=== PATIENT | male | born 1975 | race Caucasian/White ===

== ENCOUNTER → 2021-02-13 15:18 | Outpatient (BNVA) | payer OTHER, SELFPAY | PROVIDERS: PCP Internal Medicine; Visit Provider Hospitalist ==

== ENCOUNTER → 2021-09-18 15:19 | Outpatient (BNVA) | payer OTHER, SELFPAY | PROVIDERS: PCP Internal Medicine; Visit Provider Hospitalist ==

== ENCOUNTER → 2021-10-05 16:02 | Outpatient (REF) | payer OTHER, SELFPAY | LOC: HO.SL 16:02 | PROVIDERS: PCP Internal Medicine; Visit Provider Hospitalist | DX: G47.33 Obstructive sleep apnea (adult) (pediatric) (principal) | CPT/HCPCS: 95806 ==

== ENCOUNTER → 2021-12-21 10:31 | Outpatient (BNVA) | payer BC, SELFPAY | PROVIDERS: PCP Internal Medicine; Visit Provider Hospitalist ==

== ENCOUNTER → 2023-01-14 14:22 | Outpatient (BNVA) | payer BC, SELFPAY | PROVIDERS: PCP Internal Medicine; Visit Provider Hospitalist | DX: Z13.89 Encounter for screening for other disorder (principal) ==

== ENCOUNTER → 2023-04-12 15:22 | Outpatient (BNVA) | payer BC, SELFPAY | PROVIDERS: PCP Internal Medicine; Visit Provider Hospitalist ==

== ENCOUNTER 2023-07-21 15:50 | Outpatient (AMB) | payer BC, SELFPAY ==
--- NOTE | 2023-07-21 15:57 | A.OFFVIS_ITS ---
Intake Vital Signs 07/21/23 15:59 Height 5 ft 9 in Weight 197 lb BMI 29.1 Pulse 89 Pulse Source Pulse Oximeter Pulse Oximetry (%) 95 Oxygen Delivery Method Room Air Intake Visit Reasons: asthma [employer] Required: No Allergies No Known Allergies Allergy (Verified 07/21/23 16:00) HPI HPI Comments History of Present Illness Details The patient is a 47-year-old gentleman with a known history of severe persistent asthma in addition to severe eczema. He had been on chronic prednis one for many years. He was ultimately placed on nebulized therapy with Brovana and budesonide and responded very well to that. Ultimately tried multiple biologic therapies including; Xolair, Nucala, Fosenra and now on Dupixent. The picks and has been very effective for him. His eczema completely cleared and his asthma has been significantly better. Since he has been on the biologic therapy has not been on prednisone. He did have 1 episode that it he ended up having a brief hospitalization and had stop the Dupixent for couple weeks and his symptoms gradually came back. Therefore he knows not to miss a dose. Otherwise the patient is without any other complaints. 07/2020 the patient is here for pulmonary follow-up visit. He has been complaining of worsening chest tightness and shortness of breath. Not is typical asthma without any significant wheezing. The only change in his medication is he was given a generic lebalbuterl instead of his Xopenex. He continues on Dupixent and appears to be very effective in helping his asthma in addition to his eczema. He has not noted any issues with that. Does note increased chest tightness. In the office his blood pressure is elevated in the 140s over 80s and also we did note EKG that was slightly abnormal. At this point because of his symptoms with him go for an x-ray in addition to blood work. The patient will also benefit from having a cardiology evaluation potentially stress test. 02/13/2021 the patient is here for pulmonary follow-up visit. He has been having the persistent dyspnea on exertion. Kssn-km-hkkokjrf severity. Does have the chest tightness she is doing more regular. Has been using his nebulized therapy as prescribed. He is also using Spiriva. He has significant air trapping on examination with very diminished breath sounds. At this point will be reasonable to try him on a long-acting muscarinic antagonist through his nebulizer to further optimize his respiratory therapy. He continues on the Dupixent for his severe asthma. This appears to be helpful and effective in minimizing his significant allergies and eczema. He has not require prednisone while being on Dupixent except for burst of prednisone. The patient has gained weight since the last on. He understands that the waking would only worsen his respiratory capacity. Therefore we need to work on weight management and also exercise regimen. We talked about his beer drinking. He has been doing it more often on a daily basis. Therefore he is going to cut down and hopefully quit altogether. 09/18/2021 the patient is here for a pulmonary follow-up visit. Overall the patient has been doing well. We have switched him over to Yupelri from the Spiriva but he did not tolerated as well. Therefore he went back on Spiriva. He continues on his nebulized therapy. The patient did require a short burst of prednisone but he is trying to stay away from. He continues to respond well to the Dupixent. She does take that every 2 weeks. the Dupixent is really helping his eczema significantly as well. There was for severely good option for him to continue. However, he continues to have significant air trapping and obstru ctive airway disease and seemed to not be able to tolerate any the escalation of his respiratory therapy. Therefore, he may be a good candidate for TSLP Asthma therapy. the patient has gained some weight since we last spoke. He does have an elevated Topton score, 09/20. The patient has been having increasing daytime drowsiness and also headaches. I do believe that a home sleep study will be really important in view of his increase cardiovascular risk factors. Using positive her pressure may also help his obstructive airway disease. Will have him return after undergoing home sleep study to review the results. 12/21/2021 the patient has a telehealth visit. he recovered from COVID- 19. He did received monoclonal antibodies. Now is back to work today. No fevers or chills more than 24 hours. His respiratory status is also improved. He did complete antibiotics and also prednisone taper. He continues with his nebulized therapy. Still complains of dyspnea on exertion. Mild in severity. Patient understands that this can take a little longer to recover completely from COVID. In the meantime we did talk about his previous sleep study demonstrating evidence of overnight nocturnal hypoxia. In view of his asthma COPD the patient may benefit from oxygen supplementation at nighttime. I will therefore repeat the overnight oximetry at this time to see if he still qualifies. He continues on the Dupixent injections. The therapies have been helpful. Will consider alternative biologics in the future. 01/14/2023 the patient is here for pulmonary follow-up visit. Overall he is doing okay. Continues have significant dyspnea on exertion. Does have been getting worse moderate severity. Therefore he has not been able to exercise any noticed that he is gaining weight. He has been on his nebulized therapy regimen for many years. Seems like is not working as well any more. Therefore will go ahead and switch his medications over to further maximize it. Will have him start Trelegy and he will hold off on the Brovana for now. He will continue the budesonide as well this time. He continues on Dupixent injections. Although he continues to be symptomatic. Will go ahead and request blood work but I do believe the patient probably do better on test are. Will go ahead and continue to see how he response to the medication changes on then consider changing his biologic. The patient does have significant nocturnal hypoxia documented on previous studies. Therefore go ahead and order an overnight oximetry to further address did need for oxygen. 04/12/2023 the patient is here for pulmonary follow-up visit. Patient's no better. He did not start the Trelegy. Still having significant chest tightness and wheezing. He is not on any prednisone. The patient has been partially helpful. He also has significant eczema hope some with that. Although she has been breaking a little bit more. The patient is no longer responding to the Dupixent after few years. Therefore will go ahead and switch him to a different biologic, tezspire. In addition to that I do believe that he needs additional bronchodilation and will provided with prescription for Trelegy. He will continue the Trelegy along with his nebulized therapies. 07/21/2023 the patient is here for pulmonary follow-up visit. Since we last spoke the patient continues to have significant snoring. He has actually gained weight. His Topton score is elevated 09/20. His is very concerned because he does have apneic episodes. She is constantly having to turn him because of the apneic episodes. Will go ahead and repeat the home sleep study at this time. I do believe the patient will benefit from CPAP therapy. We also talked about alternative therapies but will have to wait for the sleep apnea results. Patient also has been responding well to Tezspire. he has been on now for 2 months and seems to be doing well. However, notices that the exam was act ually getting worse unfortunately. Will continue to monitor the axilla. I do believe that medication is working for for least for the asthma standpoint and therefore will continue for now. He did use the Trelegy inhaler. He did not think the Trelegy was as effective as the Spiriva. Therefore will go ahead and stop the Trelegy and he can go back on Brovana and budesonide along with Spiriva. Will send the medications to the pharmacy. [facility] Medical History (Updated 12/21/21 @ 21:51 by Paras Browne MD) Asthma-COPD overlap syndrome Chronic allergic rhinitis COVID-19 Eczema PANKAJ (obstructive sleep apnea) Severe persistent asthma Social History (Updated 09/18/21 @ 15:25 by Reena Nair [facility]) Patient Tobacco Use Status: Never used Tobacco Review of Systems Const Reports daytime sleepiness, Denies fever(s), Reports snoring, Reports stops breathing during sleep and Reports weight gain ENT Denies change in voice, Denies lip swelling, Denies mouth pain, Reports nasal congestion, Reports nasal discharge and Denies tongue swelling Card Denies chest pain and Reports dyspnea on exertion Resp Reports cough, Reports dyspnea on exertion, Reports snoring and Reports wheezing GI Denies abdominal pain Musc Denies no additional complaints Skin/Breast Reports rash Neuro Denies Neuro-related abnormal movements Psych Denies no additional complaints Alberto/Lymph Denies easy bleeding and Denies lymphadenopathy Aller/Immun Denies lip swelling, Denies tongue swelling and Reports wheezing Physical Exam Vital Signs: Last Vital Signs Pulse 89 07/21/23 15:59 Pulse Ox 95 07/21/23 15:59 Oxygen Delivery Method Room Air 07/21/23 15:59 BMI result Body Mass Index 29.1 Const General: alert Neck Neck: Yes normal visual inspection, Yes full ROM and Yes no lymphadenopathy Chest Chest palpation & inspection: normal inspection of the chest Resp Auscultation: no rhonchi, no wheezes and diminished lung sounds Cardio Rate: regular rate Rhythm: regular rhythm Heart sounds: S1 normal heart sound present and S2 normal heart sound present GI Palpation (GI): Soft to palpation and nontender Auscultation: normal bowel sounds General: Yes no CVA tenderness Back/Spine/Pelvis Back: no CVA tenderness Skin General skin exam: rashes and/or lesions noted Assessment & Plan Assessment & Plan (1) Severe persistent asthma: Code(s): J45.50 - Severe persistent asthma, uncomplicated Qualifiers: Asthma complication type: uncomplicated Qualified Code(s): J45.50 - Severe persistent asthma, uncomplicated (2) Eczema: Code(s): L30.9 - Dermatitis, unspecified Qualifiers: Eczema type: flexural Qualified Code(s): L20.82 - Flexural eczema (3) Asthma-COPD overlap syndrome: Code(s): J44.9 - Chronic obstructive pulmonary disease, unspecified (4) Chronic allergic rhinitis: Code(s): J30.9 - Allergic rhinitis, unspecified (5) PANKAJ (obstructive sleep apnea): Code(s): G47.33 - Obstructive sleep apnea (adult) (pediatric) Plan continue Tezspire, monitor eczema restart Spiriva continue Brovana twice a day continue BUdesonide twice a day Home PSG Xopenex as needed continue singulair Weight management exercise regularly F/U 3-6 months Medications: Changed From Spiriva Respimat 2.5 mcg/actuation (tiotropium bromide) 2 puffs inhalation DAILY 12 grams 3RF NS To Spiriva Respimat 2.5 mcg/actuation (tiotropium bromide) 2 puffs inhalation DAILY 90 days 12 grams 3RF NS Discontinued revefenacin (Yupelri) Discontinued Reason: Doctor's Order 175 mcg (3 mL) inhalation DAILY 30 days 90 mL 11RF xgvyespaxyw-qrjtsndmv-qohjsxrk 200-62.5-25 mcg (Trelegy Ellipta) Discontinued Reason: None 1 inh inhalation DAILY 30 days 60 ea 12RF zqdclqiawvg-oouysnybm-fvqyzasp 200-62.5-25 mcg (Trelegy Ellipta) Discontinued Reason: None 1 inh inhalation DAILY 90 days 3 ea 3RF Coding Level of Care Code Est Pt Level 4 (63937) Diagnoses Severe persistent asthma J45.50 Asthma complication type: uncomplicated Eczema L20.82 Eczema type: flexural Asthma-COPD overlap syndrome J44.9 Chronic allergic rhinitis J30.9 PANKAJ (obstructive sleep apnea) G47.33 Time Spent (min) 20
[2023-07-21 15:59] VITALS: PULSE 89; O2SAT 95; BMI 29.1
== END 2023-07-21 16:23 | disposition home or self-care (01) ==
PROVIDERS: PCP Internal Medicine; Visit Provider Hospitalist
DX: L20.82 Flexural eczema (principal); J44.9 Chronic obstructive pulmonary disease, unspecified; J30.9 Allergic rhinitis, unspecified; G47.33 Obstructive sleep apnea (adult) (pediatric)
CPT/HCPCS: 99214

== ENCOUNTER → 2023-07-21 15:50 | Outpatient (BNVA) | payer BC, SELFPAY | PROVIDERS: PCP Internal Medicine; Visit Provider Hospitalist ==

== ENCOUNTER 2023-10-25 15:55 | Outpatient (REF) | payer BC, SELFPAY ==
[2023-10-25 16:42] LABS: MANUAL DIFF FLAG NO
[2023-10-25 17:04] LABS: VBG Base Excess 4.6 mmol/L; VBG HCO3 30 mmol/L (22-26); VBG pCO2 51 mmHg; VBG pH 7.38 (7.32-7.43); VBG pO2 49 mmHg
[2023-10-25 17:05] LABS: Venous Blood Gas Refer to POC result
[2023-10-25 17:34] LABS: Basophils Percent Auto 0.4 % (0-2); Eosinophils Absolute Auto 0.1 X10*3/uL (0.0-0.4); Eosinophils Percent Auto 1.8 % (0-4); Hematocrit 41.7 % (42.0-52.0); Hemoglobin 14.3 g/dl (14.0-18.0); Imm Gran Abs Auto 0.02 X10*3/uL (0.00-0.03); Imm Gran Pct Auto 0.4 % (0.0-0.4); Lymphocytes Absolute Auto 1.6 X10*3/uL (1.2-4.9); Lymphocytes Percent Auto 29.2 % (20-40); Mean Corpuscular HGB Conc 34.3 g/dl (31.0-36.0); Mean Corpuscular Volume 93.3 fL (80.0-98.0); Mean Platelet Volume 10.8 fL (9.4-12.4); Monocytes Absolute Auto 0.6 X10*3/uL (0.1-1.2); Monocytes Percent Auto 10.9 % (2-11); Neutrophils Absolute Auto 3.2 x10*3/uL (2.0-8.3); Neutrophils Percent Auto 57.3 % (45-73); Platelet Count 196 X10*3/uL (160-400); Red Blood Count 4.47 X10*6/uL (4.60-5.80); White Blood Count 5.6 X10*3/uL (4.8-10.8)
[2023-10-25 17:43] LABS: D Dimer High Sensitivity < 150 NG/ML
[2023-10-25 18:17] LABS: Anion Gap 14 (12-20); Blood Urea Nitrogen 11 mg/dL (9-16); Calcium 9.6 mg/dL (8.4-10.2); Carbon Dioxide 28 mmol/L (22-29); Chloride 104 mmol/L (96-108); Estimated Glomerular Filt Rate > 60; Glucose Random 95 mg/dL (60-115); Potassium 4.1 mmol/L (3.3-5.1); Sodium 142 mmol/L (135-145)
[2023-10-25 19:07] LABS: Erythrocyte Sedimentation Rate 18 MM/HR (0-15)
[2023-10-27 03:18] LABS: Immunoglobulin E 65 kU/L (<OR=114)
[2023-10-28 16:59] LABS: IgA 291 mg/dL (47-310); IgG 897 mg/dL (600-1640); IgM 68 mg/dL (50-300)
== END 2023-10-25 15:56 | disposition home or self-care (01) ==
LOC: HO.LAB 15:55
PROVIDERS: PCP Internal Medicine; Visit Provider Hospitalist
DX: J45.51 Severe persistent asthma with (acute) exacerbation (principal); J44.9 Chronic obstructive pulmonary disease, unspecified; J96.01 Acute respiratory failure with hypoxia; L20.82 Flexural eczema; J30.9 Allergic rhinitis, unspecified; G47.33 Obstructive sleep apnea (adult) (pediatric)
CPT/HCPCS: 36415; 80048; 82784; 82785; 82803; 85025; 85379; 85652; 94618

== ENCOUNTER 2023-10-25 15:55 | Outpatient (AMB) | payer BC, SELFPAY ==
--- NOTE | 2023-10-25 15:56 | MHC.OFFVIS ---
Intake Vital Signs 10/25/23 15:57 Height 5 ft 9 in Weight 198 lb 6.656 oz BMI 29.3 BP 110/82 Blood Pressure Location Lt brachial Position Sitting Respiration 14 Pulse 89 Pulse Source Pulse Oximeter Pulse Oximetry (%) 95 Oxygen Delivery Method Room Air Intake Visit Reasons: cough Allergies No Known Allergies Allergy (Verified 10/25/23 15:57) HPI HPI Comments History of Present Illness Details The patient is a 48-year-old gentleman with a known history of severe persistent asthma in addition to severe eczema. He had been on chronic prednisone for many years. He was ultimately placed on nebulized therapy with Brovana and budesonide and responded very well to that. Ultimately tried multiple biologic therapies including; Xolair, Nucala, Fosenra and now on Dupixent. The picks and has been very effective for him. His eczema completely cleared and his asthma has been significantly better. Since he has been on the biologic therapy has not been on prednisone. He did have 1 episode that it he ended up having a brief hospitalization and had stop the Dupixent for couple weeks and his symptoms gradually came back. Therefore he knows not to miss a dose. Otherwise the patient is without any other complaints. 01/14/2023 the patient is here for pulmonary follow-up visit. Overall he is doing okay. Continues have significant dyspnea on exertion. Does have been getting worse moderate severity. Therefore he has not been able to exercise any noticed that he is gaining weight. He has been on his nebulized therapy regimen for many years. Seems like is not working as well any more. Therefore will go ahead and switch his medications over to further maximize it. Will have him start Trelegy and he will hold off on the Brovana for now. He will continue the budesonide as well this time. He continues on Dupixent injections. Although he continues to be symptomatic. Will go ahead and request blood work but I do believe the patient probably do better on test are. Will go ahead and continue to see how he response to the medication changes on then consider changing his biologic. The patient does have significant nocturnal hypoxia documented on previous studies. Therefore go ahead and order an overnight oximetry to further address did need for oxygen. 04/12/2023 the patient is here for pulmonary follow-up visit. Patient's no better. He did not start the Trelegy. Still having significant chest tightness and wheezing. He is not on any prednisone. The patient has been partially helpful. He also has significant eczema hope some with that. Although she has been breaking a little bit more. The patient is no longer responding to the Dupixent after few years. Therefore will go ahead and switch him to a different biologic, tezspire. In addition to that I do believe that he needs additional bronchodilation and will provided with prescription for Trelegy. He will continue the Trelegy along with his nebulized therapies. 07/21/2023 the patient is here for pulmonary follow-up visit. Since we last spoke the patient continues to have significant snoring. He has actually gained weight. His [place] score is elevated 09/20. His is very concerned because he does have apneic episodes. She is constantly having to turn him because of the apneic episodes. Will go ahead and repeat the home sleep study at this time. I do believe the patient will benefit from CPAP therapy. We also talked about alternative therapies but will have to wait for the sleep apnea results. Patient also has been responding well to Tezspire. he has been on now for 2 months and seems to be doing well. However, notices that the exam was actually getting worse unfortunately. Will continue to monitor the axilla. I do believe that medication is working for for least for the asthma standpoint and therefore will continue for now. He did use the Trelegy inhaler. He did not think the Trelegy was as effective as the Spiriva. Therefore will go ahead and stop the Trelegy and he can go back on Brovana and budesonide along with Spiriva. Will send the medications to the pharmacy. 10/25/2023 the patient is here for a pulmonary follow-up visit. The patient did have an apartment with breathing. He had a choking episode recently that also exacerbated his breathing some. But even before that he has been noticing worsening shortness of breath with minimal activity. The patient has been having increased chest congestion as well. He did call in yesterday the patient was started on medications. In the meantime we did go for 6 minutes walk test the patient did desaturate down to 86%. He does have advanced COPD even at an early age and therefore will benefit from oxygen with activity. Also will benefit from oxygen with sleep since he has been documented to be hypoxic at nighttime as well. Based on his chronic obstructive pulmonary disease will also go ahead and check a blood gas where the patient will be assessed for any evidence of hypercarbia. If there is evidence of hypercarbia I do believe the patient will benefit from noninvasive ventilator. If he does have evidence of hypercarbia he does have increased risk for hospitalizations and worsen mortality. Therefore if he does have hypercarbia will start him on a noninvasive ventilator. The patient is agreeable to this as well. Will continue with current respiratory therapy. He continues on Dupixent injection. That tezspire was stopped due to worsening eczema. Continues to have daytime drowsiness with an elevated EPWORTH 10/21. Now that requieres oxygen we will request an in lab sleep study. [facility] Medical History (Updated 10/25/23 @ 22:22 by Paras rBowne MD) COVID-19 PANKAJ (obstructive sleep apnea) Chronic allergic rhinitis Asthma-COPD overlap syndrome Eczema Severe persistent asthma Social History (Updated 09/18/21 @ 15:25 by Reena Nair Khanh) Patient Tobacco Use Status: Never used Tobacco Review of Systems Const Reports daytime sleepiness, Denies fever(s), Reports snoring, Reports stops breathing during sleep and Reports weight gain ENT Denies change in voice, Denies lip swelling, Denies mouth pain, Reports nasal congestion, Reports nasal discharge and Denies tongue swelling Card Denies chest pain, Reports dyspnea and Reports dyspnea on exertion Resp Reports cough, Reports dyspnea, Reports dyspnea on exertion, Reports snoring and Reports wheezing GI Denies abdominal pain Musc Denies no additional complaints Skin/Breast Reports rash Neuro Denies Neuro-related abnormal movements Psych Denies no additional complaints Alberto/Lymph Denies easy bleeding and Denies lymphadenopathy Aller/Immun Denies lip swelling, Denies tongue swelling and Reports wheezing Physical Exam Vital Signs: Last Vital Signs Pulse 89 10/25/23 15:57 Resp 14 10/25/23 15:57 BP 110/82 10/25/23 15:57 Pulse Ox 95 10/25/23 15:57 Oxygen Delivery Method Room Air 10/25/23 15:57 BMI result Body Mass Index 29.3 Const General: alert Neck Neck: Yes normal visual inspection, Yes full ROM and Yes no lymphadenopathy Chest Chest palpation & inspection: normal inspection of the chest Resp Effort & Inspection: prolonged expiratory phase Auscultation: no rhonchi, wheezes and diminished lung sounds Cardio Rate: regular rate Rhythm: regular rhythm Heart sounds: S1 normal heart sound present and S2 normal heart sound present GI Palpation (GI): Soft to palpation and nontender Auscultation: normal bowel sounds General: Yes no CVA tenderness Back/Spine/Pelvis Back: no CVA tenderness Skin General skin exam: rashes and/or lesions noted Office Procedures 6 Minute Walk Time:: 22:28 SPO2 % at rest: 94 Pulse at rest: 78 SPO2 % during excercise: 86 Pulse during excercise: 87 Distance in yards walked: 200 Kimberly Score: 6 Supplemental Oxygen: desaturated to 86% with activity, placed on 2L/cont and pox 92% with activity 20269 - 6 Minute Walk Results Reviewed Results Reviewed: pwesonally reviewed CXR 10/25 with hyperinflation Assessment & Plan Assessment & Plan (1) Severe persistent asthma: Code(s): J45.50 - Severe persistent asthma, uncomplicated Qualifiers: Asthma complication type: with acute exacerbation Qualified Code(s): J45.51 - Severe persistent asthma with (acute) exacerbation (2) Asthma-COPD overlap syndrome: Code(s): J44.9 - Chronic obstructive pulmonary disease, unspecified (3) Acute hypoxic respiratory failure: Code(s): J96.01 - Acute respiratory failure with hypoxia (4) Eczema: Code(s): L30.9 - Dermatitis, unspecified Qualifiers: Eczema type: flexural Qualified Code(s): L20.82 - Flexural eczema (5) Chronic allergic rhinitis: Code(s): J30.9 - Allergic rhinitis, unspecified (6) PANKAJ (obstructive sleep apnea): Code(s): G47.33 - Obstructive sleep apnea (adult) (pediatric) Plan stopped Tezspire continue Dupixent continue Spiriva continue Brovana twice a day continue BUdesonide twice a day start oxygen with activity and sleep will benefit from an in lab sleep study Bloodwork and blood gas Xopenex as needed continue singulair Weight management exercise regularly F/U 2 months Orders: Orders Basic Metabolic Panel Today J44.9 - Chronic obstructive pulmonary disease, unspecified, J96.01 - Acute respiratory failure with hypoxia Erythrocyte Sedimentation Rate Today J44.9 - Chronic obstructive pulmonary disease, unspecified, J96.01 - Acute respiratory failure with hypoxia Immunoglobulin E Today J44.9 - Chronic obstructive pulmonary disease, unspecified, J96.01 - Acute respiratory failure with hypoxia Complete Blood Count Auto Diff Today J44.9 - Chronic obstructive pulmonary disease, unspecified, J96.01 - Acute respiratory failure with hypoxia D Dimer High Sensitivity Today J44.9 - Chronic obstructive pulmonary disease, unspecified, J96.01 - Acute respiratory failure with hypoxia Immunoglobulins,IgG IgA IgM Today J44.9 - Chronic obstructive pulmonary disease, unspecified, J96.01 - Acute respiratory failure with hypoxia Venous Blood Gas Today J44.9 - Chronic obstructive pulmonary disease, unspecified, J96.01 - Acute respiratory failure with hypoxia RT PSG in-lab sleep study Today G47.33 - Obstructive sleep apnea (adult) (pediatric) Coding Level of Care Code Est Pt Level 5 (20552) Diagnoses Severe persistent asthma with acute exacerbation J45.51 Asthma complication type: with acute exacerbation Asthma-COPD overlap syndrome J44.9 Acute hypoxic respiratory failure J96.01 Flexural eczema L20.82 Eczema type: flexural Chronic allergic rhinitis J30.9 PANKAJ (obstructive sleep apnea) G47.33 CPT Codes Coding ([id number]) Time Spent (min) 40
[2023-10-25 15:57] VITALS: BP 110/82; PULSE 89; RESP 14; O2SAT 95; BMI 29.3
[2023-10-25 22:27] VITALS: PULSE 78; O2SAT 94
== END 2023-10-25 16:20 | disposition home or self-care (01) ==
PROVIDERS: PCP Internal Medicine; Visit Provider Hospitalist
DX: J45.51 Severe persistent asthma with (acute) exacerbation (principal); J96.01 Acute respiratory failure with hypoxia; G47.33 Obstructive sleep apnea (adult) (pediatric); L20.82 Flexural eczema
CPT/HCPCS: 94618; 99215

== ENCOUNTER → 2023-11-22 20:30 | Outpatient (REF) | payer BC, SELFPAY | LOC: HO.SL 20:30 | PROVIDERS: PCP Internal Medicine; Visit Provider Hospitalist | DX: G47.33 Obstructive sleep apnea (adult) (pediatric) (principal) | CPT/HCPCS: 95810 ==

== ENCOUNTER → 2023-11-22 21:03 | Outpatient (BNV) | payer BC, SELFPAY | PROVIDERS: PCP Internal Medicine; Visit Provider Internal Medicine | DX: G47.33 Obstructive sleep apnea (adult) (pediatric) (principal) | CPT/HCPCS: 95810 ==

== ENCOUNTER 2024-01-13 15:41 | Outpatient (AMB) | payer BC, SELFPAY ==
[2024-01-13 15:43] VITALS: BP 142/92; PULSE 98; O2SAT 95; BMI 29.5
--- NOTE | 2024-01-13 15:43 | MHC.OFFVIS ---
Intake Vital Signs 01/13/24 15:43 Height 5 ft 9 in Weight 199 lb 8.293 oz BMI 29.5 BP 142/92 H Blood Pressure Location Lt brachial Position Sitting Pulse 98 Pulse Source Pulse Oximeter Pulse Oximetry (%) 95 Oxygen Delivery Method Room Air Intake Visit Reasons: asthma Intake Note: pt is here for follow up and states he is feeling okay, here for follow up of sleep study. [employer] Required: No Allergies No Known Allergies Allergy (Verified 01/13/24 15:47) HPI HPI Comments History of Present Illness Details The patient is a 48-year-old gentleman with a known history of severe persistent asthma in addition to severe eczema. He had been on chronic prednisone for many years. He was ultimately placed on nebulized therapy with Brovana and budesonide and responded very well to that. Ultimately tried multiple biologic therapies including; Xolair, Nucala, Fosenra and now on Dupixent. The picks and has been very effective for him. His eczema completely cleared and his asthma has been significantly better. Since he has been on the biologic therapy has not been on prednisone. He did have 1 episode that it he ended up having a brief hospitalization and had stop the Dupixent for couple weeks and his symptoms gradually came back. Therefore he knows not to miss a dose. Otherwise the patient is without any other complaints. 01/14/2023 the patient is here for pulmonary follow-up visit. Overall he is doing okay. Continues have significant dyspnea on exertion. Does have been getting worse moderate severity. Therefore he has not been able to exercise any noticed that he is gaining weight. He has been on his nebulized therapy regimen for many years. Seems like is not working as well any more. Therefore will go ahead and switch his medications over to further maximize it. Will have him start Trelegy and he will hold off on the Brovana for now. He will continue the budesonide as well this time. He continues on Dupixent injections. Although he continues to be symptomatic. Will go ahead and request blood work but I do believe the patient probably do better on test are. Will go ahead and continue to see how he response to the medication changes on then consider changing his biologic. The patient does have significant nocturnal hypoxia documented on previous studies. Therefore go ahead and order an overnight oximetry to further address did need for oxygen. 04/12/2023 the patient is here for pulmonary follow-up visit. Patient's no better. He did not start the Trelegy. Still having significant chest tightness and wheezing. He is not on any prednisone. The patient has been partially helpful. He also has significant eczema hope some with that. Although she has been breaking a little bit more. The patient is no longer responding to the Dupixent after few years. Therefore will go ahead and switch him to a different biologic, tezspire. In addition to that I do believe that he needs additional bronchodilation and will provided with prescription for Trelegy. He will continue the Trelegy along with his nebulized therapies. 07/21/2023 the patient is here for pulmonary follow-up visit. Since we last spoke the patient continues to have significant snoring. He has actually gained weight. His [place] score is elevated 09/20. His is very concerned because he does have apneic episodes. She is constantly having to turn him because of the apneic episodes. Will go ahead and repeat the home sleep study at this time. I do believe the patient will benefit from CPAP therapy. We also talked about alternative therapies but will have to wait for the sleep apnea results. Patient also has been responding well to Tezspire. he has been on now for 2 months and seems to be doing well. However, notices that the exam was actually getting worse unfortunately. Will continue to monitor the axilla. I do believe that medication is working for for least for the asthma standpoint and therefore will continue for now. He did use the Trelegy inhaler. He did not think the Trelegy was as effective as the Spiriva. Therefore will go ahead and stop the Trelegy and he can go back on Brovana and budesonide along with Spiriva. Will send the medications to the pharmacy. 10/25/2023 the patient is here for a pulmonary follow-up visit. The patient did have an apartment with breathing. He had a choking episode recently that also exacerbated his breathing some. But even before that he has been noticing worsening shortness of breath with minimal activity. The patient has been having increased chest congestion as well. He did call in yesterday the patient was started on medications. In the meantime we did go for 6 minutes walk test the patient did desaturate down to 86%. He does have advanced COPD even at an early age and therefore will benefit from oxygen with activity. Also will benefit from oxygen with sleep since he has been documented to be hypoxic at nighttime as well. Based on his chronic obstructive pulmonary disease will also go ahead and check a blood gas where the patient will be assessed for any evidence of hypercarbia. If there is evidence of hypercarbia I do believe the patient will benefit from noninvasive ventilator. If he does have evidence of hypercarbia he does have increased risk for hospitalizations and worsen mortality. Therefore if he does have hypercarbia will start him on a noninvasive ventilator. The patient is agreeable to this as well. Will continue with current respiratory therapy. He continues on Dupixent injection. That tezspire was stopped due to worsening eczema. Continues to have daytime drowsiness with an elevated EPWORTH 10/21. Now that requieres oxygen we will request an in lab sleep study. 01/13/2024 the patient is here for pulmonary follow-up visit. He did start using the oxygen. He oxygen therapy has been affecting beneficial. He needs to use it with sleep and also with activity. He does not always use it with activity though. He does have a pulse oximeter that he can check himself. In the meantime he did undergo an in-lab sleep study. It appeared that he did not have any evidence of any significant sleep apnea although he did desaturate requiring oxygen. Patient continues to have significant dyspnea on exertion moderate severity. He is doing better on the Dupixent. The eczema is settling down some and his asthma has been not getting any worse. He does continue with nebulized therapy as prescribed. The patient did have a blood gas back in August demonstrating a pCO2 of 55 minutes of mercury consistent with chronic hypercarbic respiratory failure due to his chronic obstructive pulmonary disease, asthma COPD overlap syndrome. Therefore, the patient carries a poor prognosis. He does need to start the noninvasive ventilator to improve his gas exchange improve his prognosis and decrease his risk for hospitalization. in addition to that he needs to continue to work on exercise. He has the online pulmonary rehab information to be able to start online rehab at this time. [facility] Medical History (Updated 10/25/23 @ 22:22 by Paras Browne MD) COVID-19 PANKAJ (obstructive sleep apnea) Chronic allergic rhinitis Asthma-COPD overlap syndrome Eczema Severe persistent asthma Social History Patient Tobacco Use Status: Never used Tobacco Review of Systems Const Reports daytime sleepiness, Denies fever(s), Reports snoring, Reports stops breathing during sleep and Reports weight gain ENT Denies change in voice, Denies lip swelling, Denies mouth pain, Reports nasal congestion, Reports nasal discharge and Denies tongue swelling Card Denies chest pain, Reports dyspnea and Reports dyspnea on exertion Resp Reports cough, Reports dyspnea, Reports dyspnea on exertion, Reports snoring and Reports wheezing GI Denies abdominal pain Musc Denies no additional complaints Skin/Breast Reports rash Neuro Denies Neuro-related abnormal movements Psych Denies no additional complaints Alberto/Lymph Denies easy bleeding and Denies lymphadenopathy Aller/Immun Denies lip swelling, Denies tongue swelling and Reports wheezing Physical Exam Vital Signs: Last Vital Signs Pulse 98 01/13/24 15:43 BP 142/92 H 01/13/24 15:43 Pulse Ox 95 01/13/24 15:43 Oxygen Delivery Method Room Air 01/13/24 15:43 BMI result Body Mass Index 29.5 Const General: alert Neck Neck: Yes normal visual inspection, Yes full ROM and Yes no lymphadenopathy Chest Chest palpation & inspection: normal inspection of the chest Resp Effort & Inspection: prolonged expiratory phase Auscultation: no rhonchi, wheezes and diminished lung sounds Cardio Rate: regular rate Rhythm: regular rhythm Heart sounds: S1 normal heart sound present and S2 normal heart sound present GI Palpation (GI): Soft to palpation and nontender Auscultation: normal bowel sounds General: Yes no CVA tenderness Back/Spine/Pelvis Back: no CVA tenderness Skin General skin exam: rashes and/or lesions noted Assessment & Plan Assessment & Plan (1) Severe persistent asthma: Code(s): J45.50 - Severe persistent asthma, uncomplicated Qualifiers: Asthma complication type: with acute exacerbation Qualified Code(s): J45.51 - Severe persistent asthma with (acute) exacerbation (2) Asthma-COPD overlap syndrome: Code(s): J44.9 - Chronic obstructive pulmonary disease, unspecified (3) Acute hypoxic respiratory failure: Code(s): J96.01 - Acute respiratory failure with hypoxia (4) Eczema: Code(s): L30.9 - Dermatitis, unspecified Qualifiers: Eczema type: flexural Qualified Code(s): L20.82 - Flexural eczema (5) Chronic allergic rhinitis: Code(s): J30.9 - Allergic rhinitis, unspecified (6) PANKAJ (obstructive sleep apnea): Code(s): G47.33 - Obstructive sleep apnea (adult) (pediatric) Plan Request spirometry and repeat blood gas blood work start noninvasive ventilator. The patient does have very severe COPD in addition to evidence of chronic hypercarbic respiratory failure with significant air trapping. The patient will benefit from a noninvasive ventilator at this time to improve his gas exchange improve his prognosis and decrease hospitalizations. continue Dupixent continue Spiriva continue Brovana twice a day continue BUdesonide twice a day continue oxygen with activity and sleep Xopenex as needed Trial Combivent in view of Xopenex back order continue singulair Weight management exercise regularly F/U 2 months Orders: Orders Venous Blood Gas 01/15/24 J44.9 - Chronic obstructive pulmonary disease, unspecified, J45.50 - Severe persistent asthma, uncomplicated Immunoglobulin E 01/15/24 J44.9 - Chronic obstructive pulmonary disease, unspecified, J45.50 - Severe persistent asthma, uncomplicated Basic Metabolic Panel 01/15/24 J44.9 - Chronic obstructive pulmonary disease, unspecified, J45.50 - Severe persistent asthma, uncomplicated Medications: New ipratropium-albuterol 20-100 mcg/actuation (Combivent Respimat) 1 puff inhalation Q6H 30 days 4 grams 6RF prednisone PO daily; Take 6 tabs daily x 3 days, then 5 tabs x 3 days, then 4 tabs x 3 days, then 3 tabs x 3 days, then 2 tabs daily x 3 days, then 1 tab x 3 days to complete. 18 days 63 tabs 0RF Coding Level of Care Code Est Pt Level 4 (39088) Diagnoses Severe persistent asthma with acute exacerbation J45.51 Asthma complication type: with acute exacerbation Asthma-COPD overlap syndrome J44.9 Acute hypoxic respiratory failure J96.01 Flexural eczema L20.82 Eczema type: flexural Chronic allergic rhinitis J30.9 PANKAJ (obstructive sleep apnea) G47.33 Time Spent (min) 20
== END 2024-01-13 16:10 | disposition home or self-care (01) ==
PROVIDERS: PCP Internal Medicine; Visit Provider Hospitalist
DX: J45.51 Severe persistent asthma with (acute) exacerbation (principal); J44.9 Chronic obstructive pulmonary disease, unspecified; J96.01 Acute respiratory failure with hypoxia; L20.82 Flexural eczema; J30.9 Allergic rhinitis, unspecified; G47.33 Obstructive sleep apnea (adult) (pediatric)
CPT/HCPCS: 99214

== ENCOUNTER → 2024-01-13 15:41 | Outpatient (BNVA) | payer BC, SELFPAY | PROVIDERS: PCP Internal Medicine; Visit Provider Hospitalist ==

== ENCOUNTER 2025-01-25 13:15 | Outpatient (AMB) | payer BC, SELFPAY ==
[2025-01-25 13:23] VITALS: BP 140/76; PULSE 95; O2SAT 95; BMI 26.2
--- NOTE | 2025-01-25 13:23 | MHC.OFFVIS ---
Vital Signs 01/25/25 13:23 Height 5 ft 9 in Weight 177 lb 7.554 oz BMI 26.2 BP 140/76 H Blood Pressure Location Rt brachial Position Sitting Pulse 95 Pulse Source Pulse Oximeter Pulse Oximetry (%) 95 Oxygen Delivery Method Room Air Intake Visit Reasons: asthma/sylvie Allergies No Known Allergies Allergy (Verified 01/25/25 13:30) HPI Comments Details: The patient is a 49-year-old gentleman with a known history of severe persistent asthma in addition to severe eczema. He had been on chronic prednisone for many years. He was ultimately placed on nebulized therapy with Brovana and budesonide and responded very well to that. Ultimately tried multiple biologic therapies including; Xolair, Nucala, Fosenra and now on Dupixent. The picks and has been very effective for him. His eczema completely cleared and his asthma has been significantly better. Since he has been on the biologic therapy has not been on prednisone. He did have 1 episode that it he ended up having a brief hospitalization and had stop the Dupixent for couple weeks and his symptoms gradually came back. Therefore he knows not to miss a dose. Otherwise the patient is without any other complaints. 01/14/2023 the patient is here for pulmonary follow-up visit. Overall he is doing okay. Continues have significant dyspnea on exertion. Does have been getting worse moderate severity. Therefore he has not been able to exercise any noticed that he is gaining weight. He has been on his nebulized therapy regimen for many years. Seems like is not working as well any more. Therefore will go ahead and switch his medications over to further maximize it. Will have him start Trelegy and he will hold off on the Brovana for now. He will continue the budesonide as well this time. He continues on Dupixent injections. Although he continues to be symptomatic. Will go ahead and request blood work but I do believe the patient probably do better on test are. Will go ahead and continue to see how he response to the medication changes on then consider changing his biologic. The patient does have significant nocturnal hypoxia documented on previous studies. Therefore go ahead and order an overnight oximetry to further address did need for oxygen. 04/12/2023 the patient is here for pulmonary follow-up visit. Patient's no better. He did not start the Trelegy. Still having significant chest tightness and wheezing. He is not on any prednisone. The patient has been partially helpful. He also has significant eczema hope some with that. Although she has been breaking a little bit more. The patient is no longer responding to the Dupixent after few years. Therefore will go ahead and switch him to a different biologic, tezspire. In addition to that I do believe that he needs additional bronchodilation and will provided with prescription for Trelegy. He will continue the Trelegy along with his nebulized therapies. 07/21/2023 the patient is here for pulmonary follow-up visit. Since we last spoke the patient continues to have significant snoring. He has actually gained weight. His [place] score is elevated 09/20. His is very concerned because he does have apneic episodes. She is constantly having to turn him because of the apneic episodes. Will go ahead and repeat the home sleep study at this time. I do believe the patient will benefit from CPAP therapy. We also talked about alternative therapies but will have to wait for the sleep apnea results. Patient also has been responding well to Tezspire. he has been on now for 2 months and seems to be doing well. However, notices that the exam was actually getting worse unfortunately. Will continue to monitor the axilla. I do believe that medication is working for for least for the asthma standpoint and therefore will continue for now. He did use the Trelegy inhaler. He did not think the Trelegy was as effective as the Spiriva. Therefore will go ahead and stop the Trelegy and he can go back on Brovana and budesonide along with Spiriva. Will send the medications to the pharmacy. 10/25/2023 the patient is here for a pulmonary follow-up visit. The patient did have an apartment with breathing. He had a choking episode recently that also exacerbated his breathing some. But even before that he has been noticing worsening shortness of breath with minimal activity. The patient has been having increased chest congestion as well. He did call in yesterday the patient was started on medications. In the meantime we did go for 6 minutes walk test the patient did desaturate down to 86%. He does have advanced COPD even at an early age and therefore will benefit from oxygen with activity. Also will benefit from oxygen with sleep since he has been documented to be hypoxic at nighttime as well. Based on his chronic obstructive pulmonary disease will also go ahead and check a blood gas where the patient will be assessed for any evidence of hypercarbia. If there is evidence of hypercarbia I do believe the patient will benefit from noninvasive ventilator. If he does have evidence of hypercarbia he does have increased risk for hospitalizations and worsen mortality. Therefore if he does have hypercarbia will start him on a noninvasive ventilator. The patient is agreeable to this as well. Will continue with current respiratory therapy. He continues on Dupixent injection. That tezspire was stopped due to worsening eczema. Continues to have daytime drowsiness with an elevated EPWORTH 24. Now that requieres oxygen we will request an in lab sleep study. 01/13/2024 the patient is here for pulmonary follow-up visit. He did start using the oxygen. He oxygen therapy has been affecting beneficial. He needs to use it with sleep and also with activity. He does not always use it with activity though. He does have a pulse oximeter that he can check himself. In the meantime he did undergo an in-lab sleep study. It appeared that he did not have any evidence of any significant sleep apnea although he did desaturate requiring oxygen. Patient continues to have significant dyspnea on exertion moderate severity. He is doing better on the Dupixent. The eczema is settling down some and his asthma has been not getting any worse. He does continue with nebulized therapy as prescribed. The patient did have a blood gas back in August demonstrating a pCO2 of 55 minutes of mercury consistent with chronic hypercarbic respiratory failure due to his chronic obstructive pulmonary disease, asthma COPD overlap syndrome. Therefore, the patient carries a poor prognosis. He does need to start the noninvasive ventilator to improve his gas exchange improve his prognosis and decrease his risk for hospitalization. in addition to that he needs to continue to work on exercise. He has the online pulmonary rehab information to be able to start online rehab at this time. 01/25/2025 the patient is here for a pulmonary follow-up visit. The patient overall has been doing okay. He does complaint of daytime drowsiness. His [place] score is elevated 24. He did have a sleep study in early 2023 demonstrating a moderate degree of sleep apnea. The patient needs to start CPAP therapy at this time. The patient continues on the biologic therapy, Dupixent. He is tolerating well. Although recently he did get an asthma flare-up. He continues on his nebulized therapy with good effect. Recently he did have a cold and developed worsening respiratory symptoms but he is feeling like he is getting better. He did not required any prednisone or antibiotics. As far as potential new medications we did talk about Oht[place]ayre a something that he can consider starting for further bronchodilation an anti-inflammatory effect. [facility] Medical History (Updated 01/25/25 @ 13:46 by Paras Browne MD) COVID-19 PANKAJ (obstructive sleep apnea) Chronic allergic rhinitis Asthma-COPD overlap syndrome Eczema Severe persistent asthma Social History Patient Tobacco Use Status: Never used Tobacco Review of Systems Const Reports daytime sleepiness, Denies fever(s), Reports snoring, Reports stops breathing during sleep and Reports weight gain ENT Denies change in voice, Denies lip swelling, Denies mouth pain, Reports nasal congestion, Reports nasal discharge and Denies tongue swelling Card Denies chest pain, Reports dyspnea and Reports dyspnea on exertion Resp Reports cough, Reports dyspnea, Reports dyspnea on exertion, Reports snoring and Reports wheezing GI Denies abdominal pain Musc Denies no additional complaints Skin/Breast Reports rash Neuro Denies Neuro-related abnormal movements Psych Denies no additional complaints Alberto/Lymph Denies easy bleeding and Denies lymphadenopathy Aller/Immun Denies lip swelling, Denies tongue swelling and Reports wheezing Physical Exam Vital Signs: Last Vital Signs Pulse 95 01/25/25 13:23 BP 140/76 H 01/25/25 13:23 Pulse Ox 95 01/25/25 13:23 Oxygen Delivery Method Room Air 01/25/25 13:23 BMI result Body Mass Index 26.2 Const General: alert Neck Neck: Yes normal visual inspection, Yes full ROM and Yes no lymphadenopathy Chest Chest palpation & inspection: normal inspection of the chest Resp Effort & Inspection: prolonged expiratory phase Auscultation: no rhonchi, no wheezes and diminished lung sounds Cardio Rate: regular rate Rhythm: regular rhythm Heart sounds: S1 normal heart sound present and S2 normal heart sound present GI Palpation (GI): Soft to palpation and nontender Auscultation: normal bowel sounds General: Yes no CVA tenderness Back/Spine/Pelvis Back: no CVA tenderness Skin General skin exam: rashes and/or lesions noted Assessment & Plan Assessment & Plan (1) Severe persistent asthma: Code(s): J45.50 - Severe persistent asthma, uncomplicated Category: Medical Qualifiers: Asthma complication type: with acute exacerbation Qualified Code(s): J45.51 - Severe persistent asthma with (acute) exacerbation (2) Asthma-COPD overlap syndrome: Code(s): J44.9 - Chronic obstructive pulmonary disease, unspecified Category: Medical (3) Acute hypoxic respiratory failure: Code(s): J96.01 - Acute respiratory failure with hypoxia Category: Medical (4) Eczema: Code(s): L30.9 - Dermatitis, unspecified Category: Medical Qualifiers: Eczema type: flexural Qualified Code(s): L20.82 - Flexural eczema (5) Chronic allergic rhinitis: Code(s): J30.9 - Allergic rhinitis, unspecified Category: Medical (6) PANKAJ (obstructive sleep apnea): Code(s): G47.33 - Obstructive sleep apnea (adult) (pediatric) Category: Medical (7) Rash: Code(s): R21 - Rash and other nonspecific skin eruption Category: Medical Plan start APAP continue Dupixent continue Spiriva continue Brovana twice a day continue BUdesonide twice a day continue oxygen with activity and sleep Xopenex as needed continue singulair Weight management exercise regularly bloodwork sleep aid F/U 4 months Orders: Orders Immunoglobulins,IgG IgA IgM 01/25/25 J44.9 - Chronic obstructive pulmonary disease, unspecified, J45.51 - Severe persistent asthma with (acute) exacerbation, R21 - Rash and other nonspecific skin eruption Immunoglobulin E 01/25/25 J44.9 - Chronic obstructive pulmonary disease, unspecified, J45.51 - Severe persistent asthma with (acute) exacerbation, R21 - Rash and other nonspecific skin eruption Immunoglobulin G Subclasses 01/25/25 J44.9 - Chronic obstructive pulmonary disease, unspecified, J45.51 - Severe persistent asthma with (acute) exacerbation, R21 - Rash and other nonspecific skin eruption Celiac Disease Panel 01/25/25 R21 - Rash and other nonspecific skin eruption Complete Blood Count Auto Diff 01/25/25 J44.9 - Chronic obstructive pulmonary disease, unspecified, J45.51 - Severe persistent asthma with (acute) exacerbation, R21 - Rash and other nonspecific skin eruption Basic Metabolic Panel 01/25/25 J44.9 - Chronic obstructive pulmonary disease, unspecified, J45.51 - Severe persistent asthma with (acute) exacerbation, R21 - Rash and other nonspecific skin eruption Medications: New trazodone 100 mg (2 x 50 mg) PO BEDTIME PRN 60 tabs 3RF sleep 30 days Coding Level of Care Code Est Pt Level 4 (80948) Complex EM visit Add On G2211 Diagnoses Severe persistent asthma with acute exacerbation J45.51 Asthma complication type: with acute exacerbation Asthma-COPD overlap syndrome J44.9 Acute hypoxic respiratory failure J96.01 Flexural eczema L20.82 Eczema type: flexural Chronic allergic rhinitis J30.9 PANKAJ (obstructive sleep apnea) G47.33 Rash R21 Time Spent (min) 17
--- OUTSIDE RECORDS SUMMARY | 2025-01-25 15:17 | XMS_ITS | Clinical Summary ---
Author Organization [facility] [address] Address [address] [place] [address] Care Team Providers Care Charcoal Burner [employer] Name Role Phone Unavailable Primary Care Provider Unavailabl e Social History Tobacco Use Types Packs/Day Years Used Date Smoking Tobacco: Never Assessed Sex and Gender Information Value Date Recorded Sex Assigned at Not on file Legal Sex Male 11:45 AM EDT Gender Identity Not on file Sexual Orientation Not on file Plan of Treatment Health Maintenance Due Date Last Done Comments HIV screening 1990 Hepatitis C screening 1995 Tetanus adult (Td q 10,TDAP once) 1997 Lipid disorder screening 2017 Colon cancer screening, Colonoscopy 2022 Diabetes screening 2022 Influenza vaccine 06/28/2024 Covid-19 vaccine series ( season) 2024 RSV Discussion (1 - 1-dose 7 5+ series) 2052 Meningococcal Vaccine Aged Out No lily fco eligible based on patient's age to complete this topic Pneumococcal Vaccine (2 - 49 years) Aged Out No longer eligible based on patient's age to complete this topic
--- OUTSIDE RECORDS SUMMARY | 2025-01-25 15:17 | XMS_ITS | Clinical Summary ---
Author Organization [facility] Address [address] [place] [address] Care Team Providers Care Rehabilitation Worker Name Role Phone Angel Brizuela MD Primary Care Provider [phone] Medications Medication Sig Dispensed Refills Start Date End Date Status predniSONE (DELTASONE) tablet 10 mg Take 3 tablets by mouth daily. 0 05/12/2018 Active cetirizine (ZyrTEC) 10 MG tablet Take 10 mg by mouth. 0 Active budesonide (PULMICORT) 0.5 MG/2ML nebulizer solution 0 01/26/2022 Active levalbuterol (XOPENEX) 1.25 MG/3ML nebulizer solution Inhale 3 mL into the lungs. 0 06/12/2019 Active ibuprofen 600 MG tablet Take 1 tablet (600 mg total) by mouth every 6 (six) hours as needed for pain. 30 tablet 0 02/11/2022 Active acetaminophen (TYLENOL) 500 MG tablet Take 2 tablets (1,000 mg total) by mouth every 8 (eight) hours. 60 tablet 0 02/11/2022 Active rivaroxaban (Xarelto) 10 MG tablet Take 1 tablet (10 mg total) by mouth daily. 30 tablet 0 02/12/2022 Active rivaroxaban (Xarelto) 10 MG tablet Take 1 tablet (10 mg total) by mouth daily. 30 tablet 0 02/13/2022 Active oxyCODONE (ROXICODONE) 5 MG immediate release tablet Take 1 tablet (5 mg total) by mouth every 6 (six) hours as needed for pain. 20 tablet 0 02/25/2022 Active Active Problems No known active problems Social History Tobacco Use Types Packs/Day Years Used Date Smoking Tobacco: Never Smokeless Tobacco: Never Sex and Gender Information Value Date Recorded Sex Assigned at Not on file Gender Identity Not on file Sexual Orientation Not on file Job Start Date Occupation Industry Not on file Not on file Not on file Last Filed Vital Signs Vital Sign Reading Time Taken Comments Blood Pressure - - Pulse - - Temperature - - Respiratory Rate - - Oxygen Saturation - - Inhaled Oxygen Concentration - - Weight 88.5 kg (195 lb) 05/06/2022 9:03 AM EDT Height 177.8 cm (5' 10 ) 05/06/2022 9:03 AM EDT Body Mass Index 27.98 05/06/2022 9:03 AM EDT Plan of Treatment Health Maintenance Due Date Last Done Comments Hepatitis B Vaccines (1 of 3 - 3-dose series) 1977 Hepatitis C Screening 1977 COVID-19 Vaccine (#1) 04/01/1978 Depression Screening 1989 BMI Counseling 1995 Preventative Health Evaluation 1995 DTap / Tdap / Td (1 - Tdap) 1996 Colon Cancer Screening (Colonoscopy) 2022 Influenza Vaccine (#1) 2024 Pneumococcal Vaccine Aged Out 10/21/2008 No long er eligible based on patient's age to complete this topic RSV Ped < 20 months Aged Out No longe r eligible based on patient's age to complete this topic Care Teams Rehabilitation Worker Relationship Specialty Start Date End Date Angel Brizuela MD [address] [place] [id number] PCP - General Bottom Brusher 05/07/21
--- OUTSIDE RECORDS SUMMARY | 2025-01-25 15:17 | XMS_ITS | Encounter Summary ---
Author Organization [facility] Address [address] [place] [address] Care Team Providers Care Sand Miller Name Role Phone Unavailable Primary Care Provider Unavailabl e Reason for Referral * Consultation (Routine) - Closed Specialty Diagnoses / Procedures Referred By Porfirio t Referred To Contact Pulmonary Disease Diagnoses Chronic obstructive pulmonary disease, unspecified COPD type (HC Code) External, Provider [facility] [address] [place] [address], 2nd floor [facility], [address] [place] [address] Phone: tel: fax: Referral ID Status Reason Start Date Expiration Date V isits Requested Visits Authorized [id number] Closed Specialty Services Required 05/03/2016 05/03/2017 1 1 Encounter Details Date Type Department Care Team (Latest Contact Info) Description 05/03/2016 Transcribed Orders Referral Link Providers [address] [place] [id number] Angel Velez MD [address] [place] [phone] Chronic obstructive pulmonary disease, unspecified COPD type (HC Code) (Primary Dx) Social History Tobacco Use Types Packs/Day Years Used Date Smoking Tobacco: Never Assessed Sex and Gender Information Value Date Recorded Sex Assigned at Not on file Legal Sex Male 11:45 AM EDT Gender Identity Not on file Sexual Orientation Not on file documented as of this encounter Plan of Treatment Scheduled Referrals Name Type Priority Associated Diagnoses Orde r Schedule Ambulatory referral to Pulmonology Outpatient Referral Routine Chronic obstructive pulmonary disease, unspecified COPD type (HC Code) Ordered: 05/03/2016 documented as of this encounter Visit Diagnoses Diagnosis Chronic obstructive pulmonary disease, unspecified COPD type (HC Code)- Primary documented in this encounter
--- OUTSIDE RECORDS SUMMARY | 2025-01-25 15:17 | XMS_ITS | Clinical Summary ---
Author Organization [facility] Address [address] [place] [phone] Care Team Providers Care Director Call Name Role Phone Angel Velez MD Primary Care Provider [phone] Medical History Medical History Date Comments Asthma DX:Asthma COPD (chronic obstructive pu lmonary disease) (CMS/HCC) DX:COPD (chronic obstructive pulmonary disease) (HCC) History of transfusion DX:Histor y of transfusion Social History Tobacco Use Types Packs/Day Years Used Date Smoking Tobacco: Never Smokeless Tobacco: Never Sex and Gender Information Value Date Recorded Sex Assigned at Not on file Legal Sex Male 9:58 PM EST Gender Identity Not on file Sexual Orientation Not on file Obstetrics History Last Filed Vital Signs Vital Sign Reading [...] Health Maintenance Due Date Last Done Comments DTaP,Tdap,and Td Vaccines (1 - Tdap) 1996 Hepatitis B Vaccines (1 of 3 - 19+ 3-dose series) 1996 Cholesterol Screening (Lipid Panel) 11/05/2022 Colorectal Cancer Screening: Colonoscopy 11/05/2022 Depression Screening 11/05/2022 HIV Screening 11/05/2022 Hepatitis C Screening 11/05/2022 Social Influencers of Health Screening 11/05/2022 COVID-19 Vaccine (1 - 2023-2 5 season) 2024 Influenza Vaccine (#1) 2024 09/20/2020 HIB Vaccines Aged Out No longer eligi ble based on patient's age to complete this topic HPV Vaccines Aged Out No longer eligi ble based on patient's age to complete this topic Hepatitis A Vaccines Aged Out No long er eligible based on patient's age to complete this topic IPV Vaccines Aged Out No longer eligi ble based on patient's age to complete this topic MMR Vaccines Aged Out No longer eligi ble based on patient's age to complete this topic Meningococcal ACWY Vaccine Aged Out N o longer eligible based on patient's age to complete this topic Meningococcal B Vacine Aged Out No lo nger eligible based on patient's age to complete this topic Pneumococcal Vaccine: Pediat rics (0 to 5 Years) and At-Risk Patients (6 to 64 Years) Aged Out No longer eligi ble based on patient's age to complete this topic RSV Immunization Patients Un nishant 20 months Aged Out No longer eligible b ased on patient's age to complete this topic Varicella Vaccines Aged Out No longer eligible based on patient's age to complete this topic Advance Directives Documents on File Type Date Recorded Patient Clinical Operations Consultant Expl anation Health Care Decision (hx) 02/20/2017 AD VALDEZ DIRECTIVE Health Care Decision (hx) 02/20/2017 AD VALDEZ DIRECTIVE Health Care Decision (hx) 02/20/2017 AD VALDEZ DIRECTIVE Health Care Decision (hx) 02/20/2017 AD VALDEZ DIRECTIVE Care Teams Director Call Relationship Specialty Start Date End Date Angel Velez MD PCP - General Mortgage Collector 05/07/21
== END 2025-01-25 14:01 | disposition home or self-care (01) ==
PROVIDERS: PCP Internal Medicine; Visit Provider Hospitalist
DX: J45.51 Severe persistent asthma with (acute) exacerbation (principal); J44.9 Chronic obstructive pulmonary disease, unspecified; J96.01 Acute respiratory failure with hypoxia; L20.82 Flexural eczema; J30.9 Allergic rhinitis, unspecified; G47.33 Obstructive sleep apnea (adult) (pediatric); R21 Rash and other nonspecific skin eruption
CPT/HCPCS: 99214

== ENCOUNTER 2025-07-18 15:18 | Outpatient (AMB) | payer BC, SELFPAY ==
[2025-07-18 15:19] VITALS: BP 137/77; PULSE 102; O2SAT 87; BMI 25.7
--- NOTE | 2025-07-18 15:19 | MHC.OFFVIS ---
Vital Signs 07/18/25 15:19 Height 5 ft 9 in Weight 174 lb 2.643 oz BMI 25.7 BP 137/77 Blood Pressure Location Rt brachial Position Sitting Pulse 102 H Pulse Source Pulse Oximeter Pulse Oximetry (%) 87 L Oxygen Delivery Method Room Air Intake Visit Reasons: Asthma - sick Allergies No Known Allergies Allergy (Verified 01/25/25 13:30) HPI Comments Details: The patient is a 49-year-old gentleman with a known history of severe persistent asthma in addition to severe eczema. He had been on chronic prednisone for many years. He was ultimately placed on nebulized therapy with Brovana and budesonide and responded very well to that. Ultimately tried multiple biologic therapies including; Xolair, Nucala, Fosenra and now on Dupixent. The picks and has been very effective for him. His eczema completely cleared and his asthma has been significantly better. Since he has been on the biologic therapy has not been on prednisone. He did have 1 episode that it he ended up having a brief hospitalization and had stop the Dupixent for couple weeks and his symptoms gradually came back. Therefore he knows not to miss a dose. Otherwise the patient is without any other complaints. 01/14/2023 the patient is here for pulmonary follow-up visit. Overall he is doing okay. Continues have significant dyspnea on exertion. Does have been getting worse moderate severity. Therefore he has not been able to exercise any noticed that he is gaining weight. He has been on his nebulized therapy regimen for many years. Seems like is not working as well any more. Therefore will go ahead and switch his medications over to further maximize it. Will have him start Trelegy and he will hold off on the Brovana for now. He will continue the budesonide as well this time. He continues on Dupixent injections. Although he continues to be symptomatic. Will go ahead and request blood work but I do believe the patient probably do better on test are. Will go ahead and continue to see how he response to the medication changes on then consider changing his biologic. The patient does have significant nocturnal hypoxia documented on previous studies. Therefore go ahead and order an overnight oximetry to further address did need for oxygen. 04/12/2023 the patient is here for pulmonary follow-up visit. Patient's no better. He did not start the Trelegy. Still having significant chest tightness and wheezing. He is not on any prednisone. The patient has been partially helpful. He also has significant eczema hope some with that. Although she has been breaking a little bit more. The patient is no longer responding to the Dupixent after few years. Therefore will go ahead and switch him to a different biologic, tezspire. In addition to that I do believe that he needs additional bronchodilation and will provided with prescription for Trelegy. He will continue the Trelegy along with his nebulized therapies. 07/21/2023 the patient is here for pulmonary follow-up visit. Since we last spoke the patient continues to have significant snoring. He has actually gained weight. His Smithland score is elevated 09/20. His is very concerned because he does have apneic episodes. She is constantly having to turn him because of the apneic episodes. Will go ahead and repeat the home sleep study at this time. I do believe the patient will benefit from CPAP therapy. We also talked about alternative therapies but will have to wait for the sleep apnea results. Patient also has been responding well to Tezspire. he has been on now for 2 months and seems to be doing well. However, notices that the exam was actually getting worse unfortunately. Will continue to monitor the axilla. I do believe that medication is working for for least for the asthma standpoint and therefore will continue for now. He did use the Trelegy inhaler. He did not think the Trelegy was as effective as the Spiriva. Therefore will go ahead and stop the Trelegy and he can go back on Brovana and budesonide along with Spiriva. Will send the medications to the pharmacy. 10/25/2023 the patient is here for a pulmonary follow-up visit. The patient did have an apartment with breathing. He had a choking episode recently that also exacerbated his breathing some. But even before that he has been noticing worsening shortness of breath with minimal activity. The patient has been having increased chest congestion as well. He did call in yesterday the patient was started on medications. In the meantime we did go for 6 minutes walk test the patient did desaturate down to 86%. He does have advanced COPD even at an early age and therefore will benefit from oxygen with activity. Also will benefit from oxygen with sleep since he has been documented to be hypoxic at nighttime as well. Based on his chronic obstructive pulmonary disease will also go ahead and check a blood gas where the patient will be assessed for any evidence of hypercarbia. If there is evidence of hypercarbia I do believe the patient will benefit from noninvasive ventilator. If he does have evidence of hypercarbia he does have increased risk for hospitalizations and worsen mortality. Therefore if he does have hypercarbia will start him on a noninvasive ventilator. The patient is agreeable to this as well. Will continue with current respiratory therapy. He continues on Dupixent injection. That tezspire was stopped due to worsening eczema. Continues to have daytime drowsiness with an elevated EPWORTH 10/21. Now that requieres oxygen we will request an in lab sleep study. 01/13/2024 the patient is here for pulmonary follow-up visit. He did start using the oxygen. He oxygen therapy has been affecting beneficial. He needs to use it with sleep and also with activity. He does not always use it with activity though. He does have a pulse oximeter that he can check himself. In the meantime he did undergo an in-lab sleep study. It appeared that he did not have any evidence of any significant sleep apnea although he did desaturate requiring oxygen. Patient continues to have significant dyspnea on exertion moderate severity. He is doing better on the Dupixent. The eczema is settling down some and his asthma has been not getting any worse. He does continue with nebulized therapy as prescribed. The patient did have a blood gas back in August demonstrating a pCO2 of 55 minutes of mercury consistent with chronic hypercarbic respiratory failure due to his chronic obstructive pulmonary disease, asthma COPD overlap syndrome. Therefore, the patient carries a poor prognosis. He does need to start the noninvasive ventilator to improve his gas exchange improve his prognosis and decrease his risk for hospitalization. in addition to that he needs to continue to work on exercise. He has the online pulmonary rehab information to be able to start online rehab at this time. 01/25/2025 the patient is here for a pulmonary follow-up visit. The patient overall has been doing okay. He does complaint of daytime drowsiness. His Smithland score is elevated 10/21. He did have a sleep study in early 2023 demonstrating a moderate degree of sleep apnea. The patient needs to start CPAP therapy at this time. The patient continues on the biologic therapy, Dupixent. He is tolerating well. Although recently he did get an asthma flare-up. He continues on his nebulized therapy with good effect. Recently he did have a cold and developed worsening respiratory symptoms but he is feeling like he is getting better. He did not required any prednisone or antibiotics. As far as potential new medications we did talk about Ohtuvayre a something that he can consider starting for further bronchodilation an anti-inflammatory effect. 07/18/2025 the patient is here for sick visit he has been sick now for about a week. Positive sick contacts. He started developing chest tightness and cough. The cough is resulting in significant chest tightness. He does have some mucus plugs. When he is able to expectorate his breathing settle is a little bit. He did call over the weekend he did get a course of azithromycin and prednisone. Although it only helped a minimal amount. Denies any fevers or chills. We did do a swab for COVID today. He has had negative COVID test prior. Based on his significant chest tightness I did provide him with the Acapella valve. Hopefully this will help clear some mucus burden specially with the degree of inflammation of the airways. In addition to that the he has been using the oxygen. The oxygen therapy has been affecting beneficial. He will monitor closely his oxygen pulse ox. And he will also undergo a chest x-ray today. Since he already took a course of azithromycin will go ahead and put him on Levaquin and another course of prednisone. He received Solu-Medrol today. Hopefully that along with the mucus clearing device he will be able to improve his airway capacity. If he worsens he can always go to the ER or call us for further recommendations. Will plan to follow-up with him in 3 weeks. At which time will plan to do blood work including a blood gas to assess his gas exchange. [facility] Medical History (Updated 07/18/25 @ 23:07 by Paras Browne MD) Asthma exacerbation COVID-19 PANKAJ (obstructive sleep apnea) Chronic allergic rhinitis Asthma-COPD overlap syndrome Eczema Severe persistent asthma Social History Patient Tobacco Use Status: Never used Tobacco Review of Systems Const Reports daytime sleepiness, Denies fever(s), Reports snoring, Reports stops breathing during sleep and Reports weight gain ENT Denies change in voice, Denies lip swelling, Denies mouth pain, Reports nasal congestion, Reports nasal discharge and Denies tongue swelling Card Denies chest pain, Reports dyspnea and Reports dyspnea on exertion Resp Reports chest congestion, Reports cough, Reports dyspnea, Reports dyspnea on exertion, Reports snoring and Reports wheezing GI Denies abdominal pain Musc Denies no additional complaints Skin/Breast Reports rash Neuro Denies Neuro-related abnormal movements Psych Denies no additional complaints Alberto/Lymph Denies easy bleeding and Denies lymphadenopathy Aller/Immun Denies lip swelling, Denies tongue swelling and Reports wheezing Physical Exam Vital Signs: Last Vital Signs Pulse 102 H 07/18/25 15:19 BP 137/77 07/18/25 15:19 Pulse Ox 87 L 07/18/25 15:19 Oxygen Delivery Method Room Air 07/18/25 15:19 BMI result Body Mass Index 25.7 Const General: alert Neck Neck: Yes normal visual inspection, Yes full ROM and Yes no lymphadenopathy Chest Chest palpation & inspection: normal inspection of the chest Resp Effort & Inspection: prolonged expiratory phase Auscultation: no rhonchi, wheezes and diminished lung sounds Cardio Rate: regular rate Rhythm: regular rhythm Heart sounds: S1 normal heart sound present and S2 normal heart sound present GI Palpation (GI): Soft to palpation and nontender Auscultation: normal bowel sounds General: Yes no CVA tenderness Back/Spine/Pelvis Back: no CVA tenderness Skin General skin exam: rashes and/or lesions noted Office Meds methylprednisolone sod suc(PF) 125 mg/2 mL solution for injection Performing Provider: Paras Browne MD Performing Location: [facility] Pulmonology Services Administered by: Devorah Weaver LPN on 07/18/25 15:46 Dose Route Admin Location Dispensed Lot Number Expiration Date NDC Private Investigator Surveillance 125 mg IM rt buttock 1 ea [id number] 11/27/26 1169-4704-61 [employer] Total Dispensed Waste 1 ea 0 % Assessment & Plan Assessment & Plan (1) Asthma exacerbation: Code(s): J45.901 - Unspecified asthma with (acute) exacerbation Category: Medical Qualifiers: Asthma severity: severe Asthma persistence: persistent Qualified Code(s): J45.51 - Severe persistent asthma with (acute) exacerbation (2) Severe persistent asthma: Code(s): J45.50 - Severe persistent asthma, uncomplicated Category: Medical Qualifiers: Asthma complication type: with acute exacerbation Qualified Code(s): J45.51 - Severe persistent asthma with (acute) exacerbation (3) Asthma-COPD overlap syndrome: Code(s): J44.9 - Chronic obstructive pulmonary disease, unspecified Category: Medical (4) Acute hypoxic respiratory failure: Code(s): J96.01 - Acute respiratory failure with hypoxia Category: Medical (5) Eczema: Code(s): L30.9 - Dermatitis, unspecified Category: Medical Qualifiers: Eczema type: flexural Qualified Code(s): L20.82 - Flexural eczema (6) Chronic allergic rhinitis: Code(s): J30.9 - Allergic rhinitis, unspecified Category: Medical (7) PANKAJ (obstructive sleep apnea): Code(s): G47.33 - Obstructive sleep apnea (adult) (pediatric) Category: Medical (8) Rash: Code(s): R21 - Rash and other nonspecific skin eruption Category: Medical Plan Solumedrol 125mg IM x 1, thenm start Prednisone taper start Levaquin, consider starting Doxycycline continue Dupixent CXR continue Spiriva continue Brovana twice a day continue BUdesonide twice a day continue oxygen with activity and sleep Xopenex as needed continue singulair bloodwork F/U 2-3 weeks Orders: Orders XR chest 2V Today J45.901 - Unspecified asthma with (acute) exacerbation SARS-CoV2/FLU/RSV Today J45.901 - Unspecified asthma with (acute) exacerbation AMB Methylprednisolone Sod Succ Injection Today J44.9 - Chronic obstructive pulmonary disease, unspecified, J45.51 - Severe persistent asthma with (acute) exacerbation Medications: New prednisone PO daily; Take 6 tabs daily x 3 days, then 5 tabs x 3 days, then 4 tabs x 3 days, then 3 tabs x 3 days, then 2 tabs daily x 3 days, then 1 tab x 3 days to complete. 63 tabs 0RF 18 days levofloxacin 500 mg PO DAILY 14 tabs 0RF 14 days Coding Level of Care Code Est Pt Level 4 (65392) Complex EM visit Add On G2211 Diagnoses Severe persistent asthma with exacerbation J45.51 Asthma severity: severe Asthma persistence: persistent Severe persistent asthma with acute exacerbation J45.51 Asthma complication type: with acute exacerbation Asthma-COPD overlap syndrome J44.9 Acute hypoxic respiratory failure J96.01 Flexural eczema L20.82 Eczema type: flexural Chronic allergic rhinitis J30.9 PANKAJ (obstructive sleep apnea) G47.33 Rash R21 Time Spent (min) 17
--- OUTSIDE RECORDS SUMMARY | 2025-07-18 15:20 | XMS_ITS | Clinical Summary ---
Author Organization [facility] Address [address] [place] [address] Care Team Providers Care Charge Aide Name Role Phone Angel Brizuela MD Primary Care Provider [phone] Medications Medication Sig Dispensed Refills Start Date [...] Cancer Screening (Colonoscopy) 2022 Influenza Vaccine (#1) 2025 Pneumococcal Vaccine Aged Out 10/21/2008 No long er eligible based on patient's age to complete this topic RSV Ped < 20 months Aged Out No longe r eligible based on patient's age to complete this topic Care Teams Charge Aide Relationship Specialty Start Date End Date Angel Brizuela MD [address] [place] [id number] PCP - General Extension Educator 05/07/21
--- OUTSIDE RECORDS SUMMARY | 2025-07-18 15:20 | XMS_ITS | Clinical Summary ---
Author Organization [facility] 299 [facility] Address [address] [place] [address] Phone Care Team Providers Care Statistical Methods Professor Name Role Phone Angel Velez MD Primary Care Provider [phone] Allergies Active Allergy Reactions Criticality Noted Date Comments Aspirin 04/18/2025 Cheese 04/18/2025 moldy Albuterol 04/18/2025 Tree Nuts 04/18/2025 Medications budesonide (PULMICORT) 0.5 mg/2 mL nebulizer solution Take 2 mL (0.5 mg total) by nebulization. Active cetirizine (ZyrTEC) 10 mg tablet Take 1 tablet (10 mg total) by mouth. Active Dupixent Syringe 300 mg/2 mL syringe Inject 2 mL (300 mg total) under the skin. 4 Active Auvi-Q 0.3 mg/0.3 mL injection Inject 0.3 mL (0.3 mg total) under the skin. 4 Active levalbuterol (XOPENEX) 1.25 mg/3 mL nebulizer solution 1 ampule. Active montelukast (SINGULAIR) 10 mg tablet Take 1 tablet (10 mg total) by mouth 1 (one) time each day. 5 Active famotidine (PEPCID) 20 mg tablet Take 1 tablet (20 mg total) by mouth 2 (two) times a day. Active EPINEPHrine (AUVI-Q) 0.15 mg/0.15 mL inj auto-injector injection Inject 0.15 mL (0.15 mg total) into the thigh 1 (one) time if needed. Active tiotropium (Spiriva Respimat) 2.5 mcg/actuation inhalation spray Inhale 2 puffs by mouth 1 (one) time each day. Active escitalopram (LEXAPRO) 20 mg tablet Take 1 tablet (20 mg total) by mouth 1 (one) time each day. Active buPROPion XL (WELLBUTRIN XL) 300 mg 24 hr tablet Take 1 tablet (300 mg total) by mouth 1 (one) time each day. Do not crush, chew, or split. Active betamethasone dipropionate (DIPROSONE) 0.05 % cream Apply topically 2 (two) times a day. Active polyethylene glycol (Golytely) 236-22.74-6.74 -5.86 gram solution Take 4L by mouth once for one dose. May substitue any PEG. Starting at 2PM the day before your procedure drink 1 8oz glasses at your own pace until you complete half of the gallon. Finish 2nd half of the gallon at 8PM. 4000 mL 5 Active bisacodyL (DULCOLAX) 5 mg EC tablet Take 2 tablets by mouth right before beginning bowel prep. See instructions provided by the office 2 tablet 5 Active Encounters Date Type Department Care Team Description 07/16/2025 Telephone Gastroenterology - [address] [address] Mode Peter MD 04/18/2025 Telephone Gastroenterology - [address] [phone] Mode Peter MD special procedure from Last 3 Months Medical History Medical History Date Comments Asthma DX:Asthma COPD (chronic obstructive pu lmonary disease) ([facility] V24, [facility] V28) DX:COPD (chronic o bstructive pulmonary disease) ([facility]) History of transfusion DX:Histor y of transfusion [...] Panel) 11/05/2022 Colorectal Cancer Screening: Colonoscopy 11/05/2022 HIV Screening 11/05/2022 Hepatitis C Screening 11/05/2022 Social Influencers of Health Screening 11/05/2022 COVID-19 Vaccine ( - 2023-2 5 season) 2024 Depression Screening 11/28/2024 Influenza Vaccine (#1) 2025 09/20/2020 HIB Vaccines Aged Out No longer [...] age to complete this topic Meningococcal B Vaccine Aged Out No l onger eligible based on patient's age to complete this topic Pneumococcal Vaccine: Pediat rics (0 to 5 Years) and At-Risk Patients (6 to 49 Years) Aged Out No longer eligi ble based on patient's age to complete this topic RSV Immunization Patients Un nishant 20 months Aged Out No longer eligible b ased on patient's age to complete this topic Varicella Vaccines Aged Out No longer eligible based on patient's age to complete this topic Insurance [address] [place], [place] [id number] [facility] ([facility]) Member Subscriber Plan / Payer (Ef fective 2021-Present) Name:MEHUL DAMON Relation to Subscriber:Self Name:Mehul Damon Payer ID:[id number] Type:Not on file Address: [place] [id number] Advance Directives Documents on File Type Date Recorded Patient Car Stower Expl anation Health Care Decision (hx) 02/20/2017 AD VALDEZ DIRECTIVE Health Care Decision (hx) 02/20/2017 AD VALDEZ DIRECTIVE Health Care Decision (hx) 02/20/2017 AD VALDEZ DIRECTIVE Health Care Decision (hx) 02/20/2017 AD VALDEZ DIRECTIVE Care Teams Statistical Methods Professor Relationship Specialty Start Date End Date Angel Velez MD [address] [place] [phone] PCP - General Metal Casket Maker 05/07/21
--- OUTSIDE RECORDS SUMMARY | 2025-07-18 15:20 | XMS_ITS ---
Author Name [facility] Organization Unknown Care Team Organization Name Specialty Phone Email Start Date End Da te [facility] NULL Primary Care 10/05/2022 07/16/2024
--- OUTSIDE RECORDS SUMMARY | 2025-07-18 15:20 | XMS_ITS | Encounter Summary ---
Author Organization [facility] Address [address] [place] [address] Care Team Providers Care Floorleader Name Role Phone Unavailable Primary Care Provider Unavailabl e Reason for Referral * Consultation (Routine) - Closed Specialty Diagnoses / Procedures Referred By Porfirio t Referred To Contact Pulmonary Disease Diagnoses Chronic obstructive pulmonary disease, unspecified COPD type (HC Code) External, Provider [facility] [address] [place] [address], 2nd floor [facility], [address] [place] [address] Phone: tel: fax: Referral ID Status Reason Start Date Expiration Date V isits Requested Visits Authorized [id number] Closed Specialty Services Required 05/03/2016 05/03/2017 1 1 Encounter Details Date Type Department Care Team (Latest Contact Info) Description 05/03/2016 Transcribed Orders Referral Link Providers [address] [place] [id number] Angel Velez MD [address] [place] [phone] Chronic obstructive pulmonary disease, unspecified COPD type [...]
== END 2025-07-18 15:54 | disposition home or self-care (01) ==
LOC: HO.HPS 15:19
PROVIDERS: PCP Internal Medicine; Visit Provider Hospitalist
DX: J45.51 Severe persistent asthma with (acute) exacerbation (principal); J44.9 Chronic obstructive pulmonary disease, unspecified; J96.01 Acute respiratory failure with hypoxia; L20.82 Flexural eczema; J30.9 Allergic rhinitis, unspecified; G47.33 Obstructive sleep apnea (adult) (pediatric); R21 Rash and other nonspecific skin eruption
CPT/HCPCS: 99214

== ENCOUNTER 2025-07-18 15:18 | Outpatient (REF) | payer BC, SELFPAY ==
--- NOTE | ~2025-07-18 | XR_ITS ---
EXAMINATION: XR CHEST CLINICAL INFORMATION: J45.901 - Unspecified asthma with (acute) exacerbation COMPARISON: None available. TECHNIQUE: 2 views of the chest were obtained. FINDINGS: There are areas of air-trapping in the middle third and lower third right lung and lower third left lung. Lungs are clear otherwise. Heart and mediastinal contours are within normal limits. There is no sign of a pleural effusion. XR/XR chest 2V IMPRESSION: Multifocal areas of air trapping. Electronically signed by: Alok Sepulveda MD 07/18/2025 04:23 PM EDT
[2025-07-18 16:37] LABS: Resp Syncy Virus RNA Qual PCR NEGATIVE (Negative); SARS COV2 PCR INHOUSE NEGATIVE (Negative)
== END 2025-07-18 15:19 | disposition home or self-care (01) ==
LOC: HO.XRAY 15:18
PROVIDERS: PCP Internal Medicine; Visit Provider Hospitalist
DX: J45.51 Severe persistent asthma with (acute) exacerbation (principal); J44.9 Chronic obstructive pulmonary disease, unspecified; J96.01 Acute respiratory failure with hypoxia; L20.82 Flexural eczema; J30.9 Allergic rhinitis, unspecified; R21 Rash and other nonspecific skin eruption; Z79.620 Long term (current) use of immunosuppressive biologic; Z79.51 Long term (current) use of inhaled steroids; Z79.899 Other long term (current) drug therapy
CPT/HCPCS: 71046; 87637; 96372

== ENCOUNTER → 2025-07-18 16:06 | Outpatient (BNV) | payer BC, SELFPAY | PROVIDERS: PCP Internal Medicine; Visit Provider Radiology Diagnostic Radiology | DX: J45.901 Unspecified asthma with (acute) exacerbation (principal) | CPT/HCPCS: 71046 ==

== ENCOUNTER 2025-09-13 15:26 | Outpatient (AMB) | payer BC, SELFPAY ==
[2025-09-13 15:29] VITALS: BP 110/76; PULSE 96; O2SAT 93; BMI 24.9
--- NOTE | 2025-09-13 15:29 | A.OFFVIS_ITS ---
Vital Signs 09/13/25 15:29 Height 5 ft 9 in Weight 168 lb 10.458 oz BMI 24.9 BP 110/76 Blood Pressure Location Lt brachial Position Sitting Pulse 96 Pulse Source Pulse Oximeter Pulse Oximetry (%) 93 Oxygen Delivery Method Room Air Intake Visit Reasons: asthma/sylvie Monitor And Storage Bin Tender Required: No Accompanied by: Self / Same As Patient Allergies No Known Allergies Allergy (Verified 09/13/25 15:32) HPI Comments Details: The patient is a 49-year-old gentleman with a known history of severe persistent asthma in addition to severe eczema. He had been on chronic prednisone for many years. He was ultimately placed on nebulized therapy with Brovana and budesonide and responded very well to that. Ultimately tried multiple biologic therapies including; Xolair, Nucala, Fosenra and now on Dupixent. The picks and has been very effective for him. His eczema completely cleared and his asthma has been significantly better. Since he has been on the biologic therapy has not been on prednisone. He did have 1 episode that it he ended up having a brief hospitalization and had stop the Dupixent for couple weeks and his symptoms gradually came back. Therefore he knows not to miss a dose. Otherwise the patient is without any other complaints. 01/14/2023 the patient is here for pulmonary follow-up visit. Overall he is doing okay. Continues have significant dyspnea on exertion. Does have been getting worse moderate severity. Therefore he has not been able to exercise any noticed that he is gaining weight. He has been on his nebulized therapy regimen for many years. Seems like is not working as well any more. Therefore will go ahead and switch his medications over to further maximize it. Will have him start Trelegy and he will hold off on the Brovana for now. He will continue the budesonide as well this time. He continues on Dupixent injections. Although he continues to be symptomatic. Will go ahead and request blood work but I do believe the patient probably do better on test are. Will go ahead and continue to see how he response to the medication changes on then consider changing his biologic. The patient does have significant nocturnal hypoxia documented on previous studies. Therefore go ahead and order an overnight oximetry to further address did need for oxygen. 04/12/2023 the patient is here for pulmonary follow-up visit. Patient's no better. He did not start the Trelegy. Still having significant chest tightness and wheezing. He is not on any prednisone. The patient has been partially helpful. He also has significant eczema hope some with that. Although she has been breaking a little bit more. The patient is no longer responding to the Dupixent after few years. Therefore will go ahead and switch him to a different biologic, tezspire. In addition to that I do believe that he needs additional bronchodilation and will provided with prescription for Trelegy. He will continue the Trelegy along with his nebulized therapies. 07/21/2023 the patient is here for pulmonary follow-up visit. Since we last spo ke the patient continues to have significant snoring. He has actually gained weight. His Edgerton score is elevated 09/20. His is very concerned because he does have apneic episodes. She is constantly having to turn him because of the apneic episodes. Will go ahead and repeat the home sleep study at this time. I do believe the patient will benefit from CPAP therapy. We also talked about alternative therapies but will have to wait for the sleep apnea results. Patient also has been responding well to Tezspire. he has been on now for 2 months and seems to be doing well. However, notices that the exam was actually getting worse unfortunately. Will continue to monitor the axilla. I do believe that medication is working for for least for the asthma standpoint and therefore will continue for now. He did use the Trelegy inhaler. He did not think the Trelegy was as effective as the Spiriva. Therefore will go ahead and stop the Trelegy and he can go back on Brovana and budesonide along with Spiriva. Will send the medications to the pharmacy. 10/25/2023 the patient is here for a pulmonary follow-up visit. The patient did have an apartment with breathing. He had a choking episode recently that also exacerbated his breathing some. But even before that he has been noticing worsening shortness of breath with minimal activity. The patient has been having increased chest congestion as well. He did call in yesterday the patient was started on medications. In the meantime we did go for 6 minutes walk test the patient did desaturate down to 86%. He does have advanced COPD even at an early age and therefore will benefit from oxygen with activity. Also will benefit from oxygen with sleep since he has been documented to be hypoxic at nighttime as well. Based on his chronic obstructive pulmonary disease will also go ahead and check a blood gas where the patient will be assessed for any evidence of hypercarbia. If there is evidence of hypercarbia I do believe the patient will benefit from noninvasive ventilator. If he does have evidence of hypercarbia he does have increased risk for hospitalizations and worsen mortality. Therefore if he does have hypercarbia will start him on a noninvasive ventilator. The patient is agreeable to this as well. Will continue with current respiratory therapy. He continues on Dupixent injection. That tezspire was stopped due to worsening eczema. Continues to have daytime drowsiness with an elevated EPWORTH 10/21. Now that requieres oxygen we will request an in lab sleep study. 01/13/2024 the patient is here for pulmonary follow-up visit. He did start using the oxygen. He oxygen therapy has been affecting beneficial. He needs to use it with sleep and also with activity. He does not always use it with activity though. He does have a pulse oximeter that he can check himself. In the meantime he did undergo an in-lab sleep study. It appeared that he did not have any evidence of any significant sleep apnea although he did desaturate requiring oxygen. Patient continues to have significant dyspnea on exertion moderate severity. He is doing better on the Dupixent. The eczema is settling down some and his asthma has been not getting any worse. He does continue with nebulized therapy as prescribed. The patient did have a blood gas back in August demonstrating a pCO2 of 55 minutes of mercury consistent with chronic hypercarbic respiratory failure due to his chronic obstructive pulmonary disease, asthma COPD overlap syndrome. Therefore, the patient carries a poor prognosis. He does need to start the noninvasive ventilator to improve his gas exchange improve his prognosis and decrease his risk for hospitalization. in addition to that he needs to continue to work on exercise. He has the online pulmonary rehab information to be able to start online rehab at this time. 01/25/2025 the patient is here for a pulmonary follow-up visit. The patient overall has been doing okay. He does complaint of daytime drowsiness. His Edgerton score is elevated 24. He did have a sleep study in early 2023 demonstrating a moderate degree of sleep apnea. The patient needs to start CPAP therapy at this time. The patient continues on the biologic therapy, Dupixent. He is tolerating well. Although recently he did get an asthma flare-up. He continues on his nebulized therapy with good effect. Recently he did have a cold and developed worsening respiratory symptoms but he is feeling like he is getting better. He did not required any prednisone or antibiotics. As far as potential new medications we did talk about Ohtuvayre a something that he can consider starting for further bronchodilation an anti-inflammatory effect. 07/18/2025 the patient is here for sick visit he has been sick now for about a week. Positive sick contacts. He started developing chest tightness and cough. The cough is resulting in significant chest tightness. He does have some mucus plugs. When he is able to expectorate his breathing settle is a little bit. He did call over the weekend he did get a course of azithromycin and prednisone. Although it only helped a minimal amount. Denies any fevers or chills. We did do a swab for COVID today. He has had negative COVID test prior. Based on his significant chest tightness I did provide him with the Acapella valve. Hop efully this will help clear some mucus burden specially with the degree of inflammation of the airways. In addition to that the he has been using the oxygen. The oxygen therapy has been affecting beneficial. He will monitor closely his oxygen pulse ox. And he will also undergo a chest x-ray today. Since he already took a course of azithromycin will go ahead and put him on Levaquin and another course of prednisone. He received Solu-Medrol today. Hopefully that along with the mucus clearing device he will be able to improve his airway capacity. If he worsens he can always go to the ER or call us for further recommendations. Will plan to follow-up with him in 3 weeks. At which time will plan to do blood work including a blood gas to assess his gas exchange. 09/13/2025 the patient is here for hospital follow-up visit. After I saw him back in June with an asthma exacerbation in pneumonia he got sick there and he ended up going to the hospital. He required oxygen and IV Solu-Medrol and IV antibiotics for period of time. During that hospitalization he did undergo a CT scan of the chest which I personally reviewed at [facility]. He does have significant hyperinflation of the lungs up 4 mm pulmonary nodule that will need follow-up and also what appeared to be right lower lobe airspace disease and some mucus burden primarily in the right mainstem bronchus and central airways. The patient does feel better he is back to his baseline although he does complain of chest tightness and wheezing. He continues Dupixent. He is wondering about using the test prior but he tried Tezspire in the past and it caused severe eczema. Therefore I would rather try additional interventions or other alternative interventions before trying the Tezspire again. He is willing to try theophylline which will send him to the pharmacy. He can check levels once he is taking the full dose. It also consider Ohtuvayre as another anti-inflammatory nebulized option. The patient will continue with the current therapy will add the new medications and will follow-up in 3 months. [facility] Medical History (Updated 09/15/25 @ 21:34 by Paras Browne MD) Pulmonary nodule Asthma exacerbation COVID-19 PANKAJ (obstructive sleep apnea) Chronic allergic rhinitis Asthma-COPD overlap syndrome Eczema Severe persistent asthma Social History Patient Tobacco Use Status: Never used Tobacco Review of Systems Const Reports daytime sleepiness, Denies fever(s), Reports snoring, Reports stops breathing during sleep and Reports weight gain ENT Denies change in voice, Denies lip swelling, Denies mouth pain, Reports nasal congestion, Reports nasal discharge and Denies tongue swelling Card Denies chest pain, Reports dyspnea and Reports dyspnea on exertion Resp Reports chest congestion, Reports cough, Reports dyspnea, Reports dyspnea on exertion, Reports snoring and Reports wheezing GI Denies abdominal pain Musc Denies no additional complaints Skin/Breast Reports rash Neuro Denies Neuro-related abnormal movements Psych Denies no additional complaints Alberto/Lymph Denies easy bleeding and Denies lymphadenopathy Aller/Immun Denies lip swelling, Denies tongue swelling and Reports wheezing Physical Exam Vital Signs: Last Vital Signs Pulse 96 09/13/25 15:29 BP 110/76 09/13/25 15:29 Pulse Ox 93 09/13/25 15:29 Oxygen Delivery Method Room Air 09/13/25 15:29 BMI result Body Mass Index 24.9 Const General: alert Neck Neck: Yes normal visual inspection, Yes full ROM and Yes no lymphadenopathy Chest Chest palpation & inspection: normal inspection of the chest Resp Effort & Inspection: prolonged expiratory phase Auscultation: no rhonchi and diminished lung sounds Cardio Rate: regular rate Rhythm: regular rhythm Heart sounds: S1 normal heart sound present and S2 normal heart sound present GI Palpation (GI): Soft to palpation and nontender Auscultation: normal bowel sounds General: Yes no CVA tenderness Back/Spine/Pelvis Back: no CVA tenderness Skin General skin exam: rashes and/or lesions noted Assessment & Plan Assessment & Plan (1) Asthma-COPD overlap syndrome: Code(s): J44.9 - Chronic obstructive pulmonary disease, unspecified Category: Medical (2) Severe persistent asthma: Code(s): J45.50 - Severe persistent asthma, uncomplicated Category: Medical Qualifiers: Asthma complication type: with acute exacerbation Qualified Code(s): J45.51 - Severe persistent asthma with (acute) exacerbation (3) Acute hypoxic respiratory failure: Code(s): J96.01 - Acute respiratory failure with hypoxia Category: Medical (4) Eczema: Code(s): L30.9 - Dermatitis, unspecified Category: Medical Qualifiers: Eczema type: flexural Qualified Code(s): L20.82 - Flexural eczema (5) Chronic allergic rhinitis: Code(s): J30.9 - Allergic rhinitis, unspecified Category: Medical (6) PANKAJ (obstructive sleep apnea): Code(s): G47.33 - Obstructive sleep apnea (adult) (pediatric) Category: Medical (7) Rash: Code(s): R21 - Rash and other nonspecific skin eruption Category: Medical (8) Pulmonary nodule: Code(s): R91.1 - Solitary pulmonary nodule Category: Medical Plan continue Dupixent start Theophylline consider Ohtuvayre continue Spiriva continue Brovana twice a day continue BUdesonide twice a day continue oxygen with activity and sleep Xopenex as needed continue singulair bloodwork CT chest Fall 2025 F/U 2-3 months Orders: Orders Complete Blood Count Auto Diff 09/13/25 J44.9 - Chronic obstructive pulmonary disease, unspecified Immunoglobulins,IgG IgA IgM 09/13/25 J44.9 - Chronic obstructive pulmonary disease, unspecified Theophylline 09/13/25 J44.9 - Chronic obstructive pulmonary disease, unspecified Immunoglobulin E 09/13/25 J44.9 - Chronic obstructive pulmonary disease, unspecified Medications: New theophylline ER 300 mg PO Q12H 60 tabs 5RF 30 days Coding Level of Care Code Est Pt Level 5 (00111) Diagnoses Asthma-COPD overlap syndrome J44.9 Severe persistent asthma with acute exacerbation J45.51 Asthma complication type: with acute exacerbation Acute hypoxic respiratory failure J96.01 Flexural eczema L20.82 Eczema type: flexural Chronic allergic rhinitis J30.9 PANKAJ (obstructive sleep apnea) G47.33 Rash R21 Pulmonary nodule R91.1 Time Spent (min) 60
--- OUTSIDE RECORDS SUMMARY | 2025-09-13 17:55 | XMS_ITS | Clinical Summary ---
Author Organization [facility] 299 [facility] Address [address] [place] [address] Phone Care Team Providers Care Public Information Director Name Role Phone Angel Velez MD Primary Care Provider [phone] Allergies Active Allergy Reactions Criticality Noted Date [...] Team Description 07/16/2025 Telephone Gastroenterology - 299 [place] [facility] [address] [place] [phone] Mode Peter MD from Last 3 Months Medical History Medical History Date Comments Asthma DX:Asthma COPD (chronic obstructive pu lmonary disease) ([facility] V24, [facility] V28) DX:COPD (chronic o bstructive pulmonary disease) ([facility]) History of transfusion DX:Histor y of transfusion [...] 05/06/2022 9:03 AM EDT Plan of Treatment Upcoming Encounters Date Type Department Care Team ([facility] st Contact Info) Description 10/04/2025 11:00 AM EST Appointment [facility] [address] [place] [phone] Mode Peter MD 299 [facility] [address] [place] [address] Health Maintenance Due Date Last Done Comments Colorectal Cancer Screening: Colonoscopy 1977 DTaP,Tdap,and Td Vaccines (1 - Tdap) 1996 Hepatitis B Vaccines (1 of 3 - 19+ 3-dose series) 1996 Cholesterol Screening (Lipid Panel) 11/05/2022 HIV Screening 11/05/2022 Hepatitis C Screening 11/05/2022 Social Influencers of Health Screening 11/05/2022 Depression Screening 11/28/2024 COVID-19 Vaccine (1 - 2023-2 5 season) 2025 Influenza Vaccine (#1) 2025 09/20/2020 RSV Immunization Adult Patie nts (1 - 1-dose 75+ series) 2052 HIB Vaccines Aged Out No longer eligi [...] on patient's age to complete this topic Goals Goal Patient Goal Type Associated Problems Recent Progress Patient-Stated? Author Autogenerat ed Goal Care Plan Autogenerated Problem No Reynaldo, Addisno Additional Health Concerns Active Problems Noted Date Diagnosed Date Autogenerated Problem 09/05/2025 Insurance [facility] ([facility]) Advance Directives Documents on File Type Date Recorded Patient Wrister Expl anation Health Care Decision (hx) 02/20/2017 AD VALDEZ DIRECTIVE Health Care Decision (hx) 02/20/2017 AD VALDEZ DIRECTIVE Health Care Decision (hx) 02/20/2017 AD VALDEZ DIRECTIVE Health Care Decision (hx) 02/20/2017 AD VALDEZ DIRECTIVE Care Teams Public Information Director Relationship Specialty Start Date End Date Angel Velez MD [address] [place] [id number] PCP - General Supervisor Mending 05/07/21
--- OUTSIDE RECORDS SUMMARY | 2025-09-13 17:55 | XMS_ITS | Clinical Summary ---
Author Organization [facility] Address [address] [place] [address] Care Team Providers Care Plush Finisher Name Role Phone Unavailable Primary Care Provider [...] Colonoscopy 2022 Diabetes screening 2022 Influenza vaccine 06/28/2025 Covid-19 vaccine series ( - 2024- season) 2025 RSV Immunization (1 - 1-dose 75+ series) 2052 Meningococcal B Vaccine Aged Out No l onger eligible based on patient's age to complete this topic Meningococcal Vaccine Aged Out No lily fco eligible based on patient's age to complete this topic Pneumococcal Vaccine (2 - 49 years) Aged Out No longer eligible based on patient's age to complete this topic
--- OUTSIDE RECORDS SUMMARY | 2025-09-13 17:55 | XMS_ITS | Clinical Summary ---
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
== END 2025-09-13 16:01 | disposition home or self-care (01) ==
LOC: HO.HPS 15:27
PROVIDERS: PCP Internal Medicine; Visit Provider Hospitalist
DX: J44.9 Chronic obstructive pulmonary disease, unspecified (principal); J45.51 Severe persistent asthma with (acute) exacerbation; J96.01 Acute respiratory failure with hypoxia; L20.82 Flexural eczema; J30.9 Allergic rhinitis, unspecified; G47.33 Obstructive sleep apnea (adult) (pediatric); R21 Rash and other nonspecific skin eruption; R91.1 Solitary pulmonary nodule
CPT/HCPCS: 99215